=== PATIENT | female | born 1990 | race Two or more races ===

== ENCOUNTER 2016-10-03 22:15 | Emergency (ER) | payer OTHER ==
[~2016-10-03] VITALS: Ht 162.6 cm; Wt 108.4 kg
[2016-10-03 23:30] VITALS: BP 124/73
[2016-10-04] MEDS ORDERED: ACETAMINOPHEN 500 MG TABLET PO ONE (00:15)
[2016-10-04] MEDS ORDERED: METOCLOPRAMIDE 10 MG TABLET PO ONE (00:15)
[2016-10-04] MEDS ORDERED: METO10TA81 PO (01:24)
--- NOTE | 2016-10-04 01:24 | PHYS DOC ---
Past Medical History Past Medical History: No Pertinent History Past Surgical History: Alcohol Use: None Drug Use: None Adult General Chief Complaint Chief Complaint: VOMITING IN HPI HPI Patient is a 26 year old female who presents with complaint of vomiting and headache. Patient states her symptoms started earlier today can have progressively worsened. Patient states that she had several episodes of vomiting earlier this evening. Patient has not had any further vomiting while in the emergency department states that she still feels nauseous. Patient denies any lower abdominal pain or vaginal bleeding. Patient is approximately 18 weeks . Patient states since the beginning of her vomiting she has had mild upper abdominal pain. Patient states however her headache has gotten worse and is currently 8 out of 10. Patient is currently following with a physician at [facility]. Patient is not currently on any medications for nausea. Review of Systems Review of Systems Constitutional: Denies fever or chills [] Eyes: Denies change in visual acuity, redness, or eye pain [] HENT: Denies nasal congestion or sore throat [] Respiratory: Denies cough or shortness of breath [] Cardiovascular: No additional information not addressed in HPI [] GI: Upper abdominal pain, nausea, vomiting [] : Denies dysuria or hematuria [] Musculoskeletal: Denies back pain or joint pain [] Integument: Denies rash or skin lesions [] Neurologic: Headache, denies focal weakness or sensory changes [] Endocrine: Denies polyuria or polydipsia [] Current Medications Current Medications Current Medications Medications (Trade) Dose Ordered Sig/[facility] Start Time Stop Time Status Last Admin Dose Admin Acetaminophen (Tylenol) 1,000 mg 1X ONCE 10/04/16 00:15 10/04/16 00:16 DC 10/04/16 00:09 1,000 MG Metoclopramide HCl (Reglan) 10 mg 1X ONCE 10/04/16 00:15 10/04/16 00:16 DC 10/04/16 00:09 10 MG Allergies Allergies Allergies Coded Allergies Type Severity Reaction Last Updated Verified No Known Drug Allergies 10/04/16 No Physical Exam Physical Exam Constitutional: Alert, afebrile, no acute distress. [] HENT: Normocephalic, atraumatic, bilateral external ears normal, oropharynx moist, no oral exudates, nose normal. [] Eyes: PERRLA, EOMI, conjunctiva normal, no discharge. [] Neck: Normal range of motion, no tenderness, supple, no stridor. [] Cardiovascular:Heart rate regular rhythm, no murmur [] Lungs & Thorax: Bilateral breath sounds clear to auscultation [] Abdomen: Bowel sounds normal, soft, no tenderness, no masses, no pulsatile masses. Pelvic: Normal external exam, no abnormal discharge or blood in vaginal canal, no cervical motion tenderness, no midline or bilateral adnexal tenderness to palpation on bimanual exam [] Skin: Warm, dry, no erythema, no rash. [] Back: No tenderness, no CVA tenderness. [] Extremities: No tenderness, no cyanosis, no clubbing, ROM intact, no edema. [] Neurologic: Alert and oriented X 3, normal motor function, normal sensory function, no focal deficits noted. [] Current Patient Data Vital Signs Vital Signs Date Time Temp Pulse Resp B/P Pulse Ox O2 Delivery O2 Flow Rate FiO2 10/03/16 23:30 16 124/73 98 Room Air 10/03/16 23:00 97.9 74 97.9 Lab Values Microbiology 10/04/16 Wet Prep - Final, Complete EKG EKG Not performed [] Radiology/Procedures Radiology/Procedures Limited bedside transabdominal ultrasound performed and interpreted by myself: Viable intrauterine , heart rate 151 bpm, frequent movement [] Course & Med Decision Making Course & Med Decision Making Pertinent Labs and Imaging studies reviewed. (See chart for details) Patient was given oral Tylenol and Reglan in the emergency department with improvement in symptoms. The patient's wet prep does not show clue cells at this time and patient did not have foul-smelling discharge on exam. Patient does not require treatment of bacterial vaginosis. At this time we will continue with symptomatic control with Reglan for nausea and recommended use of Tylenol for headache. Advised follow-up in 2 days a primary doctor and return to emergency department for any worsening symptoms. Patient voiced understanding and in agreement with treatment plan. Dragon Disclaimer Dragon Disclaimer This electronic medical record was generated, in whole or in part, using a voice recognition dictation system. Departure Departure Impression: Primary Impression: Vomiting during Additional Impression: Headache Disposition: 01 HOME, SELF-CARE Condition: IMPROVED Referrals: NO PCP (PCP) Patient Instructions: Nausea and Vomiting Additional Instructions: Follow-up with your physician in the next 2 days. Return to the emergency department for any worsening symptoms. Scripts Metoclopramide Hcl (Reglan)10 Mg Tablet1 Tab PO TID PRN NAUSEA/VOMITING #30 TAB Prov:SERGEY ROWE MD 10/04/16 Problem Qualifiers Additional Impression: Headache Headache type: unspecified Headache chronicity pattern: acute headache Intractability: not intractable Qualified Code: R51 - Headache SERGEY ROWE MD Oct 04, 2016 01:24
[2016-10-04 01:33] LABS: NEG OBC UR NEG; POS OBC UR POS
== END 2016-10-04 01:35 | disposition home or self-care (01) ==
LOC: ER 22:15
DX: O21.0 Mild hyperemesis gravidarum (principal); O26.892 Other specified pregnancy related conditions, second trimester; R51 Headache; R10.10 Upper abdominal pain, unspecified; Z3A.18 18 weeks gestation of pregnancy
CPT/HCPCS: 81025; 87491; 87591; 99285; J8597; Q0111